=== PATIENT | female | born 1955 | race Caucasian/White ===

== ENCOUNTER 2016-11-05 19:22 | Inpatient (IN) | payer BC ==
--- NOTE | ~2016-11-05 | OP ---
Record Of Operation [facility] [address] [place]. [address] NAME: JOS BARRAZA : 55 STATUS : DIS IN PAT#: [id number] AGE: 60 ADM/REG DATE : 11/05/16 MR#: [id number] REPORT SERV DATE: 11/20/16 DICTATED BY: ANTHONY YEE DATE: 11/06/16 REPORT STATUS : Draft TRANSCRIBED BY: CARISSA DATE: 11/06/16 DATE OF PROCEDURE: 11/06/2016 PREOPERATIVE DIAGNOSIS: Left intertrochanteric femur fracture. POSTOPERATIVE DIAGNOSIS: Left Intertrochanteric femur fracture. OPERATION: [place]/intertrochanteric femur fracture. SIDE: Left. SIZE: See chart. BOILER SERVICE TECHNICIAN: ESTIMATED BLOOD LOSS: About 100 mL. TOURNIQUET TIME: None. COMPLICATIONS: None. SPECIMENS: None. ANESTHESIA: See chart. PROCEDURE: The patient was taken to the preoperative holding area. The patient was appropriately identified, marked and the consent form carefully checked. The patient was taken then to the operating room and anesthetic was induced per the anesthesiologist. The patient was carefully positioned, carefully padded, prepped and draped on the fracture table. Prior to the surgical prep a closed reduction was obtained by closed method using fluoroscopic guidance. The patient was then prepped and draped in the usual sterile fashion. Using fluoroscopic guidance, a straight lateral incision was made. This was followed by electrocautery through the fat, the IT band and the vastus, staying towards the posterior portion of the lateral vastus to decrease the amount of muscle tissue that was cut through. Meticulous hemostasis was obtained with electrocautery. Lateral femoral cortex was exposed further with periosteal elevator and appropriate retraction. A guide was then used to place a guidewire basically in the center of the head on AP and lateral x-ray views. This was followed by depth gauge and then triple reamer. Lag screw was placed over the guidewire. The sliding plate was then placed and impacted and checked to be sure it was down snug. The plate was held with a plate clamp distally and reduction again checked. Record Of Operation [facility] [address] [place]. [address] NAME: JOS BARRAZA : 55 STATUS : DIS IN PAT#: [id number] AGE: 60 ADM/REG DATE : 11/05/16 MR#: [id number] REPORT SERV DATE: 11/20/16 DICTATED BY: ANTHONY YEE DATE: 11/06/16 REPORT STATUS : Draft TRANSCRIBED BY: CARISSA DATE: 11/06/16 The screw holes in the plate were then filled with screws in the standard fashion with drill depth gauge and then self-tapping screw placement. The screws were then tightened by hand. All traction was released and the compression screw placed and tightened. Again x-ray views were checked to ascertain reduction and screw length. The wound was then irrigated and closed with sutures in the vastus. A medium drain was placed distally anteriorly between the vastus and the IT band, then sutured on the IT band, 2-0 subcutaneous, and jamila in the skin. Wound dressed sterilely. The patient was awakened and carefully transferred to the bed and transferred to the recovery room without incident. COUNTS: Correct. TORIE/CARISSA Tanesha Yee M.D. / [id number] CC: Aries Yarbrough M.D.
--- NOTE | ~2016-11-05 | HP ---
History And Physical [address] [place]. [address] NAME: JOS BARRAZA : 55 STATUS : ADM IN PAT#: [id number] AGE: 60 ADM/REG DATE : 11/05/16 MR#: [id number] REPORT SERV DATE: 11/06/16 DICTATED BY: ANTHONY YEE DATE: 11/06/16 REPORT STATUS : Draft TRANSCRIBED BY: MODL DATE: 11/06/16 DATE OF ADMISSION: 11/05/2016 CHIEF COMPLAINT: Left hip pain. HISTORY: This is a 60-year-old female who was running from some bees and tripped over the curb landing on her left hip. She denies pain or injury elsewhere. ALLERGIES: SULFA, CODEINE, PROPOXYPHENE, NAPROXEN, ERYTHROMYCIN, ROFECOXIB. MEDICATIONS: See chart. PAST MEDICAL HISTORY: Myopia, asthma, osteoporosis, hypoglycemia. PAST SURGICAL HISTORY: Recent right shoulder rotator cuff repair. SOCIAL HISTORY: Lives with her . No cigarettes, alcohol, or illicit drug use. FAMILY HISTORY: No anesthetic complications. REVIEW OF SYSTEMS: No recent illnesses. PHYSICAL EXAMINATION: GENERAL: She is alert and oriented x3, in no apparent distress. HEENT: Atraumatic, normocephalic. NECK: Supple. CHEST: Symmetric nontender. LUNGS: Per AA evaluation. CV: Regular. ABDOMEN: Soft. No mass. EXTREMITIES: Decreased range of motion. Severe pain, left hip. Skin is intact. Compartment supple. 2+ pulses. NEURO: Sensorimotor without deficits. X-RAY: Left intertrochanteric femur fracture. ASSESSMENT: Left intertrochanteric femur fracture. PLAN: Placed in Vasquez's traction. Recommended ORIF. We discussed risks, benefits, etc, at length, and the patient wishes to proceed. WTB/MODL History And Physical [address] [address] NAME: JOS BARRAZA : 55 STATUS : ADM IN PAT#: [id number] AGE: 60 ADM/REG DATE : 11/05/16 MR#: [id number] REPORT SERV DATE: 11/06/16 DICTATED BY: ANTOHNY YEE DATE: 11/06/16 REPORT STATUS : Draft TRANSCRIBED BY: CARISSA DATE: 11/06/16 Tanesha Yee M.D. / [id number] CC: Aries Yarbrough M.D.
--- NOTE | ~2016-11-05 | DS ---
Discharge Summary [facility] [address] [place] [place]. [address] NAME: JOS BARRAZA : 55 STATUS : DIS IN PAT#: [id number] AGE: 60 ADM/REG DATE : 11/05/16 MR#: [id number] REPORT SERV DATE: 11/15/16 DICTATED BY: ANTHONY YEE DATE: 11/15/16 REPORT STATUS : Draft TRANSCRIBED BY: CARISSA DATE: 11/15/16 Data Collection from hospitalization DISCHARGE DIAGNOSES: 1. Left intertrochanteric femur fracture. 2. Asthma. 3. Myopia. 4. Hypoglycemia. CONSULTATIONS: None. PROCEDURES: [place]/intertrochanteric femur fracture repair on 11/06/2016. CT scan of the brain without contrast on 11/05/2016. DISCHARGE MEDICATIONS: ProAir HFA two puffs via inhaler as needed, vitamin C 500 mg every morning, vitamin D3 1000 units twice a day, Flonase nasal spray two sprays nasally every morning as instructed, [place] 7.5/325 one tablet every four hours as needed, Levsin 0.125 mg twice a day as instructed, Xyzal 5 mg every evening, Dulera two puffs via inhaler twice a day, Singulair 10 mg every evening, Prilosec 40 mg every morning, Phenergan 25 mg every six hours as needed, Metamucil one dose every morning, calcium citrate one tablet twice a day, and Coumadin 2 mg daily. CONDITION AT DISCHARGE: Stable. DISPOSITION: The patient was discharged home to be followed by home health care on a regular diet with activities as instructed. She would follow up with me on 11/19/2016. HOSPITAL COURSE: This is a 60-year-old female, who was running from some bees and tripped over a curb landing on her left hip. She was found to have left intertrochanteric femur fracture. Treatment options were discussed and it was elected to proceed with surgical intervention. She was placed in Vasquez's traction. She was admitted to the hospital at this time for further evaluation and treatment. Upon admission, a CT scan of the brain without contrast was performed. This was unremarkable. The following day, she was taken to the operating room where she underwent the above-mentioned procedure. She tolerated this well. There were no complications. On postop day #1, she was evaluated by Occupational and Physical Therapy. She was doing well. She was up sitting in a bedside chair. GRETA hose were in place. Her white count was 12.1. Over the next couple of days, she continued to progress. Discharge planning was performed. On 11/09/2016, she was alert and cooperative. She had no focal deficits. She had normal distal pulses. Discharge instructions were given. Due to her improved and stable condition, she was discharged home to be followed by Home Health Care with the above-stated instructions. Information collected by: Neha Pierre I submit the above information as my discharge summary. Discharge Summary [place] [id number] [facility] [place]. [address] NAME: JOS BARRAZA : 55 STATUS : DIS IN PAT#: [id number] AGE: 60 ADM/REG DATE : 11/05/16 MR#: [id number] REPORT SERV DATE: 11/15/16 DICTATED BY: ANTHONY YEE DATE: 11/15/16 REPORT STATUS : Draft TRANSCRIBED BY: CARISSA DATE: 11/15/16 TG/CARISSA Tanesha Yee M.D. / [id number] CC: Aries Yarbrough M.D.
[2016-11-05 18:41] LABS: BASOPHILS 0.3 %; BASOPHILS ABSOLUTE 0.03 10/3/uL (0.0-0.16); EOSINOPHILS 1.2 %; EOSINOPHILS ABSOLUTE 0.12 10/3/uL (0.0-0.53); HEMATOCRIT 37.7 % (36.0-48.0); HEMOGLOBIN 12.8 g/dL (12.0-16.0); IMMATURE GRANULOCYTES 0.2 %; IMMATURE GRANULOCYTES ABSOLUTE 0.02 10/3/uL (0.0-0.11); LYMPHOCYTES 13.5 %; MEAN CORPUSCULAR HEMOGLOB 30.9 pg (26.0-34.0); MEAN CORPUSCULAR VOLUME 91.1 fL (80-100); MEAN PLATELET VOLUME 9.3 fL (9.2-13.0); MONOCYTES 4.9 %; MONOCYTES ABSOLUTE 0.51 10/3/uL (0.21-1.20); NEUTROPHILS 79.9 %; RBC DISTRIBUTION WIDTH 12.8 % (12.0-16.0); RED CELL COUNT 4.14 10/6/uL (4.0-5.6); WHITE BLOOD CELLS 10.4 10/3/uL (4.5-10.5)
[2016-11-05 18:42] LABS: MANUAL DIFF NO %; PLATELET COUNT 216 10/3/uL (150-400)
[2016-11-05 18:47] LABS: INTERNATIONAL NORMAL RATI 1.1 UNITS (-); PARTIAL THROMBO TIME 26.5 SEC (22.5-37.2); PROTIME (NOT ORD) 13.7 SEC (12.0-14.5)
[2016-11-05 18:56] LABS: A/G RATIO 1.4 (0.7-1.9); ALBUMIN 3.6 G/DL (3.5-5.0); ALKALINE PHOSPHATASE 58 U/L (45-117); BUN (BLOOD UREA NITROGEN) 17 MG/DL (6-23); CALCIUM, SERUM 8.1 MG/DL (8.5-10.4); CHLORIDE, SERUM 110 MMOL/L (96-112); CO2 (CARBON DIOXIDE) 30 MMOL/L (24-34); CREATININE 0.61 MG/DL (0.55-1.02); GFR AFRICAN AMERICAN 114 ML/MIN (>=60); GFR NON AFRICAN AMERICAN 99 ML/MIN (>=60); GLOBULIN 2.5 G/DL (2.5-4.1); GLUCOSE, SERUM 105 MG/DL (60-99); POTASSIUM, SERUM 4.1 MMOL/L (3.5-5.3); SGOT(AST) 26 U/L (5-40); SGPT(ALT) 32 U/L (5-65); SODIUM, SERUM 142 MMOL/L (135-148); TOTAL BILIRUBIN 0.4 MG/DL (0-1.2); TOTAL PROTEIN 6.1 G/DL (6.0-8.5)
[2016-11-05] MEDS ORDERED: PRILOSEC40 MG PO (21:43)
[2016-11-05] MEDS ORDERED: SINGULAIR1 PO (21:43)
[2016-11-05] MEDS ORDERED: LEVSINTAB PO/SL (21:44)
[2016-11-05] MEDS ORDERED: DULERA 100 MCG/13 GM INH (21:45)
[2016-11-05] MEDS ORDERED: FLONASE NAS (21:45)
[2016-11-05] MEDS ORDERED: CALCIUM CITRATE PO (21:46)
[2016-11-05] MEDS ORDERED: VITC500 PO (21:46)
[2016-11-05] MEDS ORDERED: VITAMIN D31000 UNIT PO (21:46)
[2016-11-05] MEDS ORDERED: PROAIR HFA INH (21:47)
[2016-11-05] MEDS ORDERED: XYZAL5 MG PO (21:47)
[2016-11-05] MEDS ORDERED: METAMUCIL CAN7 OZ PO (21:47)
[2016-11-05] MEDS ORDERED: PENNSAID 2% TOP (21:48)
[2016-11-06 04:07] LABS: BASOPHILS 0.2 %; BASOPHILS ABSOLUTE 0.02 10/3/uL (0.0-0.16); EOSINOPHILS 0.2 %; EOSINOPHILS ABSOLUTE 0.02 10/3/uL (0.0-0.53); HEMOGLOBIN 13.9 g/dL (12.0-16.0); IMMATURE GRANULOCYTES 0.2 %; IMMATURE GRANULOCYTES ABSOLUTE 0.02 10/3/uL (0.0-0.11); LYMPHOCYTES 8.3 %; MEAN CORPUS HGB CONC 33.9 g/dL (32.0-36.0); MEAN CORPUSCULAR HEMOGLOB 30.8 pg (26.0-34.0); MEAN CORPUSCULAR VOLUME 90.9 fL (80-100); MEAN PLATELET VOLUME 9.4 fL (9.2-13.0); MONOCYTES 7.4 %; MONOCYTES ABSOLUTE 0.89 10/3/uL (0.21-1.20); NEUTROPHILS 83.7 %; NEUTROPHILS ABSOLUTE 10.15 10/3/uL (2.02-8.40); PLATELET COUNT 202 10/3/uL (150-400); RBC DISTRIBUTION WIDTH 12.8 % (12.0-16.0); RED CELL COUNT 4.51 10/6/uL (4.0-5.6); WHITE BLOOD CELLS 12.1 10/3/uL (4.5-10.5)
[2016-11-06 04:08] LABS: MANUAL DIFF NO %
[2016-11-06 04:13] LABS: PROTIME (NOT ORD) 13.1 SEC (12.0-14.5)
[2016-11-06 04:28] LABS: A/G RATIO 1.4 (0.7-1.9); ALBUMIN 3.7 G/DL (3.5-5.0); ALKALINE PHOSPHATASE 61 U/L (45-117); CALCIUM, SERUM 8.4 MG/DL (8.5-10.4); CHLORIDE, SERUM 105 MMOL/L (96-112); CO2 (CARBON DIOXIDE) 27 MMOL/L (24-34); CREATININE 0.57 MG/DL (0.55-1.02); GFR AFRICAN AMERICAN 117 ML/MIN (>=60); GFR NON AFRICAN AMERICAN 101 ML/MIN (>=60); GLOBULIN 2.7 G/DL (2.5-4.1); POTASSIUM, SERUM 4.3 MMOL/L (3.5-5.3); SGOT(AST) 24 U/L (5-40); SGPT(ALT) 28 U/L (5-65); SODIUM, SERUM 138 MMOL/L (135-148); TOTAL PROTEIN 6.4 G/DL (6.0-8.5)
[2016-11-06 04:29] LABS: BUN (BLOOD UREA NITROGEN) 10 MG/DL (6-23); GLUCOSE, SERUM 136 MG/DL (60-99)
[2016-11-06 09:08] LABS: ASCORBIC ACID (UR NOT ORDER) NEG (NEG); BILIRUBIN, URINE NEGATIVE (NEG); KETONE, URINE NEGATIVE (NEG); LEUKOCYTE ESTERASE(NOT OR MOD (NEG); WBC (NOT ORDERED) (RFLEX) 115 (0-5)
[2016-11-07 04:36] LABS: HEMOGLOBIN 11.9 g/dL (12.0-16.0)
[2016-11-07 04:40] LABS: HEMATOCRIT 34.7 % (36.0-48.0)
[2016-11-07 04:43] LABS: INTERNATIONAL NORMAL RATI 1.3 UNITS (-); PROTIME (NOT ORD) 16.4 SEC (12.0-14.5)
[2016-11-07 04:47] LABS: BUN (BLOOD UREA NITROGEN) 8 MG/DL (6-23); CHLORIDE, SERUM 108 MMOL/L (96-112); CO2 (CARBON DIOXIDE) 27 MMOL/L (24-34); CREATININE 0.45 MG/DL (0.55-1.02); GFR AFRICAN AMERICAN 126 ML/MIN (>=60); GFR NON AFRICAN AMERICAN 109 ML/MIN (>=60); GLUCOSE, SERUM 129 MG/DL (60-99); SODIUM, SERUM 140 MMOL/L (135-148)
[2016-11-08 05:07] LABS: HEMATOCRIT 32.1 % (36.0-48.0)
[2016-11-08 05:15] LABS: INTERNATIONAL NORMAL RATI 2.4 UNITS (-)
[2016-11-09 04:27] LABS: HEMATOCRIT 30.6 % (36.0-48.0); HEMOGLOBIN 10.4 g/dL (12.0-16.0)
[2016-11-09 04:33] LABS: INTERNATIONAL NORMAL RATI 2.8 UNITS (-); PROTIME (NOT ORD) 29.3 SEC (12.0-14.5)
[2016-11-09] MEDS ORDERED: PR25 PO (09:39)
[2016-11-09] MEDS ORDERED: NORCO1 TA2 PO (09:39)
[2016-11-09] MEDS ORDERED: C2 PO (09:39)
== END 2016-11-09 15:55 | disposition home health service (06) | DRG 482 ==
LOC: ER 19:22 → 3SO 21:02
PROVIDERS: Emergency Medicine; Orthopaedic Surgery; Specialist
PROC: 0QS904Z Reposition Left Femoral Shaft with Internal Fixation Device, Open Approach (ICD-10-PCS; principal; 2016-11-05)
DX: S72.002A Fracture of unspecified part of neck of left femur, initial encounter for closed fracture (principal); J45.909 Unspecified asthma, uncomplicated; K21.9 Gastro-esophageal reflux disease without esophagitis
CPT/HCPCS: 36415; 70450; 71010; 73502-LT; 73560-LT; 76000; 80048; 80053; 81001; 85014; 85018; 85025; 85610; 85730; 86850; 86900; 86901; 87086; 93005; 96374; 96375; 97110-GP; 97116-GP; 97161-GP; 97166-GO; 97535-GO; 99285; A9270-GY; C1713; J0690; J1170; J2250; J2405; J2550; J2710; J3010